=== PATIENT | male | born 1985 | race African-American/Black ===

== ENCOUNTER 2017-04-16 09:51 | Emergency (ER) | payer MEDICAID ==
[~2017-04-16] VITALS: Ht 160 cm; Wt 61.2 kg
[2017-04-16 10:30] VITALS: BP 114/89
== END 2017-04-16 10:59 | disposition home or self-care (01) ==
LOC: ER 09:51
DX: G57.92 Unspecified mononeuropathy of left lower limb (principal); J02.9 Acute pharyngitis, unspecified; Z87.442 Personal history of urinary calculi; F12.10 Cannabis abuse, uncomplicated; Z87.891 Personal history of nicotine dependence; Z88.1 Allergy status to other antibiotic agents; Z88.8 Allergy status to other drugs, medicaments and biological substances

== ENCOUNTER 2017-05-17 12:52 | Inpatient (IN) | payer MEDICAID ==
[~2017-05-17] VITALS: Ht 154.9 cm; Wt 56.1 kg
[2017-05-17] MEDS ORDERED: PIPERACILLIN-TAZOB 3.375GM 50 ML IV ONE (20:15)
[2017-05-17 22:19] LABS: Basophils # (auto) 0 uL; Basophils % (auto) 0.9 % (0.0-2.0); Eosinophils # (auto) 0.1 uL; Eosinophils % (auto) 2.2 % (0.0-7.0); Hematocrit 46.3 % (41.0-53.0); Hemoglobin 15.6 g/dL (13.5-17.5); Lymphocytes # (auto) 1.5 uL; Lymphocytes % (auto) 28.3 % (10.0-50.0); Mean Corpuscular Hemoglobin 32.8 pg (28.0-32.0); Mean Corpuscular Hgb Conc. 33.8 g/dL (32.0-36.0); Monocytes # (auto) 0.4 uL; Monocytes % (auto) 7.4 % (0.0-12.0); Neutrophils # (auto) 3.2 uL; Neutrophils % (auto) 61.2 % (37.0-80.0); Nucleated Red Blood Cells % 0.1 %; Platelet Count (auto) 200 10^3/uL (140-450); Red Blood Cells 4.77 10^6/uL (4.5-5.90); Red Cell Distribution Width 13.9 % (11.8-14.3); White Blood Cell 5.2 10^3/uL (4.4-10.8)
[2017-05-17 22:56] LABS: Albumin 4.3 g/dL (3.4-5.0); BUN/Creatinine Ratio 19.5; Bilirubin, Total 0.7 mg/dL (0.2-1.0); Calcium 8.7 mg/dL (8.5-10.1); Potassium 3.4 mmol/L (3.5-5.1); Total Protein 8.4 g/dL (6.4-8.2)
[2017-05-18] MEDS ORDERED: POTASSIUM CHL 20 Meq TABLET PO ONE (02:00)
[2017-05-18] MEDS ORDERED: ACETAMINOPHEN 500 MG TAB PO PRN (02:00)
[2017-05-18] MEDS ORDERED: VANCOMYCIN PER PHARMACY 0 MG IV SCH (02:00)
[2017-05-18] MEDS ORDERED: ONDANSETRON HCL 4 MG/2 ML VIAL IV PRN (02:00)
[2017-05-18] MEDS ORDERED: VANCOMYCIN 1GM/250ML 250 ML IV ONE (02:30)
[2017-05-18] MEDS: PIPERACILLIN-TAZOB 3.375GM 50 ML IV SCH ×3 (05:48→18:07)
[2017-05-18 13:00] VITALS: BP 128/75
[2017-05-18] MEDS ORDERED: CLOB0.05 (14:59)
[2017-05-18] MEDS ORDERED: ECON1CRE (14:59)
[2017-05-18] MEDS ORDERED: LIDO1PAD55 (14:59)
[2017-05-18 15:24] VITALS: BP 101/65
[2017-05-18] MEDS: HYDROcodone-ACET 5/325MG TAB PO PRN (16:15)
[2017-05-18 17:00] VITALS: BP 112/76
[2017-05-18 22:00] VITALS: BP 101/59
[2017-05-19] MEDS: PIPERACILLIN-TAZOB 3.375GM 50 ML IV SCH ×4 (00:40→19:57)
[2017-05-19 05:00] VITALS: BP 101/68
[2017-05-19 08:56] LABS: Basophils # (auto) 0 uL; Basophils % (auto) 0.5 % (0.0-2.0); Eosinophils # (auto) 0.1 uL; Eosinophils % (auto) 1.6 % (0.0-7.0); Hemoglobin 15.4 g/dL (13.5-17.5); Lymphocytes # (auto) 1.1 uL; Lymphocytes % (auto) 27.5 % (10.0-50.0); Mean Corpuscular Hemoglobin 32.6 pg (28.0-32.0); Mean Corpuscular Hgb Conc. 33.6 g/dL (32.0-36.0); Mean Corpuscular Volume 97.1 fL (80.0-100.0); Monocytes # (auto) 0.2 uL; Monocytes % (auto) 6.2 % (0.0-12.0); Neutrophils # (auto) 2.6 uL; Neutrophils % (auto) 64.2 % (37.0-80.0); Platelet Count (auto) 178 10^3/uL (140-450); Red Blood Cells 4.74 10^6/uL (4.5-5.90); Red Cell Distribution Width 13.9 % (11.8-14.3)
[2017-05-19 09:00] VITALS: BP 97/66
[2017-05-19 09:15] LABS: Albumin 4.1 g/dL (3.4-5.0); BUN/Creatinine Ratio 11.1; Bilirubin, Total 1.1 mg/dL (0.2-1.0); Calcium 8.8 mg/dL (8.5-10.1); Potassium 4.3 mmol/L (3.5-5.1)
[2017-05-19 13:00] VITALS: BP 108/58
[2017-05-19 17:00] VITALS: BP 111/65
[2017-05-19 21:30] VITALS: BP 134/62
[2017-05-20] MEDS: PIPERACILLIN-TAZOB 3.375GM 50 ML IV SCH ×4 (01:19→17:55)
[2017-05-20 05:00] VITALS: BP 115/74
[2017-05-20 05:42] LABS: Urine Bacteria NONE SEEN /hpf (None Seen); Urine Blood Negative /uL (Negative); Urine Specific Gravity 1.024 (1.001-1.035); Urine WBC 1 /hpf (0 - 3)
[2017-05-20 08:00] VITALS: BP 113/65
[2017-05-20] MEDS ORDERED: DEXAMETHASONE SOD PHOS 10MG/1ML VIAL INJ IV ONE (08:56)
[2017-05-20] MEDS ORDERED: fentaNYL CITRATE 100 MCG/2 ML VL ONE (08:57)
[2017-05-20] MEDS ORDERED: MIDAZOLAM HCL 1MG/1ML-2 ML VIAL ONE (08:57)
[2017-05-20 09:00] VITALS: BP 113/65
[2017-05-20] MEDS ORDERED: KETOROLAC TROMETH 30 MG/ML 1ML VIAL IV ONE (09:00)
[2017-05-20] MEDS ORDERED: ONDANSETRON HCL 4 MG/2 ML VIAL IV ONE (09:00)
[2017-05-20] MEDS ORDERED: MORPHINE SULFATE 10 MG/ML INJ 1ML SDV IV PRN (09:00)
[2017-05-20] MEDS ORDERED: HYDROmorphone HCL 2 MG/ML VL IV PRN (09:00)
[2017-05-20] MEDS ORDERED: LABETALOL HCL 5 MG/ML 4ML SYRINGE IV PRN (09:00)
[2017-05-20] MEDS ORDERED: MIDAZOLAM HCL 1MG/1ML-2 ML VIAL IV PRN (09:00)
[2017-05-20] MEDS ORDERED: ePHEDrine SULFATE 50 MG/ML AMP IV PRN (09:00)
[2017-05-20] MEDS ORDERED: NEOMYCIN-BACITRACIN-POLYM 15GM TOP OINT TOP ONE (09:15)
[2017-05-20] MEDS ORDERED: BUPIVACAINE 0.5% MPF INJ 30ML SDV IJ ONE (09:15)
[2017-05-20] MEDS ORDERED: BUPIVACAINE 0.75% INJ 10ML MPV SDV IJ ONE (09:16)
[2017-05-20] MEDS ORDERED: PROPOFOL 10 MG/ML 20 ML IV ONE (09:26)
[2017-05-20] MEDS ORDERED: KETOROLAC TROMETH 30 MG/ML 1ML VIAL ONE (09:26)
[2017-05-20 13:00] VITALS: BP 113/70
[2017-05-20 17:00] VITALS: BP 118/68
[2017-05-20] MEDS: ASCORBIC ACID 500 MG TAB PO SCH (21:55)
[2017-05-20 22:00] VITALS: BP 115/65
[2017-05-21] MEDS: PIPERACILLIN-TAZOB 3.375GM 50 ML IV SCH ×2 (00:24→05:36)
[2017-05-21 05:00] VITALS: BP 135/80
[2017-05-21] MEDS: HYDROcodone-ACET 5/325MG TAB PO PRN (05:50)
[2017-05-21 06:53] LABS: Basophils # (auto) 0 uL; Basophils % (auto) 0.5 % (0.0-2.0); Eosinophils # (auto) 0 uL; Eosinophils % (auto) 0.3 % (0.0-7.0); Hematocrit 43.4 % (41.0-53.0); Hemoglobin 14.7 g/dL (13.5-17.5); Lymphocytes # (auto) 1.2 uL; Mean Corpuscular Hemoglobin 33.2 pg (28.0-32.0); Mean Corpuscular Volume 97.6 fL (80.0-100.0); Monocytes # (auto) 0.5 uL; Monocytes % (auto) 6.8 % (0.0-12.0); Neutrophils # (auto) 5.6 uL; Neutrophils % (auto) 76.4 % (37.0-80.0); Nucleated Red Blood Cells % 0.1 %; Platelet Count (auto) 179 10^3/uL (140-450); Red Blood Cells 4.45 10^6/uL (4.5-5.90); White Blood Cell 7.3 10^3/uL (4.4-10.8)
[2017-05-21 07:11] LABS: BUN/Creatinine Ratio 18.1; Calcium 9.3 mg/dL (8.5-10.1); Potassium 3.7 mmol/L (3.5-5.1)
[2017-05-21 09:00] VITALS: BP 111/73
[2017-05-21] MEDS: ASCORBIC ACID 500 MG TAB PO SCH ×2 (09:19→22:41)
[2017-05-21] MEDS ORDERED: LEVOFLOXACIN 500 MG TAB PO ONE (11:30)
[2017-05-21 13:00] VITALS: BP 119/81
[2017-05-21 16:50] VITALS: BP 122/72
[2017-05-21 22:26] VITALS: BP 126/66
[2017-05-22 05:33] VITALS: BP 92/56
[2017-05-22 09:00] VITALS: BP 118/75
[2017-05-22] MEDS ORDERED: LEVOFLOXACIN 500 MG TAB PO SCH (10:00)
[2017-05-22] MEDS: ASCORBIC ACID 500 MG TAB PO SCH (10:00)
[2017-05-22 13:00] VITALS: BP 145/66
[2017-05-22 13:13] VITALS: BP 118/75
== END 2017-05-22 14:30 | disposition home health service (06) | DRG 383 ==
LOC: ER 12:52 → OVERFLOW 12:53 → TELE-WESTW 05-18 09:13 → WEST WING 05-19 20:01
PROVIDERS: ADMIT Nurse Practitioner Family; ATTEND Internal Medicine
PROC: 0JBR0ZZ Excision of Left Foot Subcutaneous Tissue and Fascia, Open Approach (ICD-10-PCS; principal; 2017-05-20 09:05)
DX: L03.116 Cellulitis of left lower limb (principal); E10.621 Type 1 diabetes mellitus with foot ulcer; L97.529 Non-pressure chronic ulcer of other part of left foot with unspecified severity; I10 Essential (primary) hypertension; E87.6 Hypokalemia; Z80.1 Family history of malignant neoplasm of trachea, bronchus and lung; Z82.49 Family history of ischemic heart disease and other diseases of the circulatory system; Z85.118 Personal history of other malignant neoplasm of bronchus and lung; Z87.442 Personal history of urinary calculi; Z83.3 Family history of diabetes mellitus; Z87.891 Personal history of nicotine dependence; Z89.421 Acquired absence of other right toe(s); Q05.9 Spina bifida, unspecified; Z88.1 Allergy status to other antibiotic agents; Z88.8 Allergy status to other drugs, medicaments and biological substances; E10.65 Type 1 diabetes mellitus with hyperglycemia
CPT/HCPCS: 36415; 73700; 80048; 80053; 81001; 85025; 87070; 87075; 87076; 87077; 87081; 87186; 87205; 87493; 93926; 96365; 96366; J1100; J1885; J2250; J2543; J2704; J3490

== ENCOUNTER 2018-06-25 16:25 | Emergency (ER) | payer MEDICAID ==
[~2018-06-25] VITALS: Ht 160 cm; Wt 62.1 kg
[~2018-06-25 16:25] MED LIST: CLOB0.05; ECON1CRE; LIDO1PAD55
[2018-06-25 16:45] VITALS: BP 127/84
== END 2018-06-26 01:10 | disposition left against medical advice (07) ==
LOC: ER 16:29
DX: M79.672 Pain in left foot (principal); M79.671 Pain in right foot; Z53.21 Procedure and treatment not carried out due to patient leaving prior to being seen by health care provider

== ENCOUNTER 2018-06-27 13:51 | Emergency (ER) | payer MEDICAID ==
[~2018-06-27] VITALS: Ht 157.5 cm; Wt 68.9 kg
[2018-06-27 14:18] VITALS: BP 113/72
== END 2018-06-27 16:30 | disposition left against medical advice (07) ==
LOC: ER 13:55
DX: M25.471 Effusion, right ankle (principal); Z53.21 Procedure and treatment not carried out due to patient leaving prior to being seen by health care provider

== ENCOUNTER 2021-04-25 16:56 | Emergency (ER) | payer MEDICAID ==
[~2021-04-25] VITALS: Ht 160 cm; Wt 62.1 kg
[~2021-04-25 16:56] MED LIST changes: -ECON1CRE; +ECON1CRE6
[2021-04-25 19:29] VITALS: BP 152/90
[2021-04-25 20:37] LABS: Basophils # (auto) 0 10 ^3/uL (0-0.2); Basophils % (auto) 0.6 % (0.0-2.0); Eosinophils # (auto) 0.1 10 ^3/uL (0-0.8); Eosinophils % (auto) 1.9 % (0.0-7.0); Hematocrit 43.9 % (41.0-53.0); Hemoglobin 14.8 g/dL (13.5-17.5); Lymphocytes # (auto) 1.2 10 ^3/uL (0.4-5.4); Lymphocytes % (auto) 18.9 % (10.0-50.0); Mean Corpuscular Hemoglobin 31.7 pg (28.0-32.0); Mean Corpuscular Hgb Conc. 33.8 g/dL (32.0-36.0); Monocytes # (auto) 0.4 10 ^3/uL (0-1.3); Monocytes % (auto) 5.5 % (0.0-12.0); Neutrophils # (auto) 4.7 10 ^3/uL (1.6-8.6); Neutrophils % (auto) 73.1 % (37.0-80.0); Red Blood Cells 4.67 10^6/uL (4.5-5.90); Red Cell Distribution Width 14.2 % (11.8-14.3); White Blood Cell 6.4 10^3/uL (4.4-10.8)
== END 2021-04-25 21:15 | disposition home or self-care (01) ==
LOC: ER 16:56
DX: L03.811 Cellulitis of head [any part, except face] (principal); I10 Essential (primary) hypertension; Z98.2 Presence of cerebrospinal fluid drainage device; Z88.1 Allergy status to other antibiotic agents
CPT/HCPCS: 36415; 70450; 85025

== ENCOUNTER 2021-05-15 10:59 | Emergency (ER) | payer MEDICAID ==
[~2021-05-15] VITALS: Ht 160 cm; Wt 63.5 kg
[2021-05-15 11:16] VITALS: BP 134/98
== END 2021-05-15 14:33 | disposition left against medical advice (07) ==
LOC: ER 10:59
DX: R07.89 Other chest pain (principal); R06.02 Shortness of breath; Z53.21 Procedure and treatment not carried out due to patient leaving prior to being seen by health care provider
CPT/HCPCS: 93005

== ENCOUNTER 2022-11-25 12:13 | Emergency (ER) | payer MEDICAID ==
[~2022-11-25] VITALS: Ht 160 cm; Wt 60.0 kg
[2022-11-25 12:59] VITALS: BP 123/74; PULSE 78; RESP 18; O2SAT 97
[2022-11-25] MEDS ORDERED: ACETAMINOPHEN 325 MG TAB PO ONE (13:45)
[2022-11-25] MEDS ORDERED: PROCHLORPERAZINE EDISYLATE 5 MG/ML 2ML VIAL IM ONE (13:45)
[2022-11-25 14:08] LABS: Basophils # (auto) 0 10 ^3/uL (0-0.2); Basophils % (auto) 0.6 % (0.0-2.0); Eosinophils # (auto) 0.1 10 ^3/uL (0-0.8); Eosinophils % (auto) 1.5 % (0.0-7.0); Hematocrit 45.4 % (41.0-53.0); Hemoglobin 15.1 g/dL (13.5-17.5); Lymphocytes # (auto) 1.2 10 ^3/uL (0.4-5.4); Lymphocytes % (auto) 24.4 % (10.0-50.0); Mean Corpuscular Hemoglobin 32.6 pg (28.0-32.0); Mean Corpuscular Hgb Conc. 33.3 g/dL (32.0-36.0); Mean Corpuscular Volume 97.8 fL (80.0-100.0); Monocytes # (auto) 0.4 10 ^3/uL (0-1.3); Monocytes % (auto) 8.1 % (0.0-12.0); Neutrophils # (auto) 3.3 10 ^3/uL (1.6-8.6); Neutrophils % (auto) 65.4 % (37.0-80.0); Nucleated Red Blood Cells % 0.1 %; Red Blood Cells 4.65 10^6/uL (4.5-5.90); Red Cell Distribution Width 13.7 % (11.8-14.3); White Blood Cell 5.1 10^3/uL (4.4-10.8)
[2022-11-25 14:22] LABS: Albumin 4.1 g/dL (3.4-5.0); Calcium 9.1 mg/dL (8.5-10.1); Potassium 3.8 mmol/L (3.5-5.1)
[2022-11-25 14:24] LABS: INR 1.09 (0.9-1.15)
[2022-11-25 14:26] LABS: BUN/Creatinine Ratio 10.9 (10.0-20.0); Bilirubin, Total 0.4 mg/dL (0.2-1.0); Total Protein 7.4 g/dL (6.4-8.2)
== END 2022-11-25 17:20 | disposition left against medical advice (07) ==
LOC: ER 12:13
DX: R51.9 Headache, unspecified (principal); R10.2 Pelvic and perineal pain; Z88.1 Allergy status to other antibiotic agents; Z88.8 Allergy status to other drugs, medicaments and biological substances; Z79.899 Other long term (current) drug therapy
CPT/HCPCS: 36415; 70450; 80053; 85025; 85610; 85730; 96372; 99285; J0780

== ENCOUNTER 2023-01-28 10:16 | Emergency (ER) | payer MEDICAID ==
[~2023-01-28] VITALS: Ht 160 cm; Wt 64.9 kg
[2023-01-28 11:06] LABS: Basophils # (auto) 0 10 ^3/uL (0-0.2); Basophils % (auto) 0.5 % (0.0-2.0); Eosinophils # (auto) 0.1 10 ^3/uL (0-0.8); Eosinophils % (auto) 1.7 % (0.0-7.0); Hemoglobin 15.7 g/dL (13.5-17.5); Lymphocytes # (auto) 1.3 10 ^3/uL (0.4-5.4); Lymphocytes % (auto) 25.9 % (10.0-50.0); Mean Corpuscular Hemoglobin 32.7 pg (28.0-32.0); Mean Corpuscular Hgb Conc. 33.5 g/dL (32.0-36.0); Mean Corpuscular Volume 97.6 fL (80.0-100.0); Monocytes # (auto) 0.3 10 ^3/uL (0-1.3); Monocytes % (auto) 6.6 % (0.0-12.0); Neutrophils # (auto) 3.3 10 ^3/uL (1.6-8.6); Neutrophils % (auto) 65.3 % (37.0-80.0); Nucleated Red Blood Cells % 0.1 %; Red Blood Cells 4.81 10^6/uL (4.5-5.90); Red Cell Distribution Width 13.6 % (11.8-14.3)
[2023-01-28 11:22] LABS: Urine Bacteria NONE SEEN /hpf (None Seen); Urine Blood Negative /uL (Negative); Urine Clarity Clear (Clear); Urine Color Yellow (Yellow); Urine Mucus FEW (None Seen); Urine Protein, UAD TRACE (Negative); Urine Specific Gravity 1.028 (1.001-1.035); Urine Urobilinogen Normal (Negative); Urine WBC 3 /hpf (0 - 3)
[2023-01-28 11:38] LABS: Lactic Acid w/Reflex 2.1 mmol/L (0.4-2.0)
[2023-01-28 11:40] LABS: Alanine Aminotransferase 20 U/L (7-40); Albumin 4.9 g/dL (3.2-4.8); Alkaline Phosphatase 53 U/L (46-116); Anion Gap 8 (5-15); Aspartate Aminotransferase 18 U/L (13-40); Bilirubin, Total 0.6 mg/dL (0.2-1.0); Blood Urea Nitrogen 10 mg/dL (9-23); Calcium 9.9 mg/dL (8.5-10.1); Carbon Dioxide 30 mmol/L (20-30); Chloride 103 mmol/L (98-107); Glucose 77 mg/dL (74-106); Potassium 3.7 mmol/L (3.5-5.1); Sodium 141 mmol/L (136-145); Total Protein 8.1 g/dL (5.7-8.2)
[2023-01-28] MEDS ORDERED: CEPH500C PO (13:54)
[2023-01-28 14:06] VITALS: BP 122/87; PULSE 64; RESP 17; TEMP 97.6; O2SAT 100
== END 2023-01-28 14:09 | disposition home or self-care (01) ==
LOC: ER 10:16
DX: K80.20 Calculus of gallbladder without cholecystitis without obstruction (principal); M54.50 Low back pain, unspecified; M43.06 Spondylolysis, lumbar region; Z87.891 Personal history of nicotine dependence; Z79.899 Other long term (current) drug therapy; Z88.1 Allergy status to other antibiotic agents; Z88.5 Allergy status to narcotic agent; Z88.8 Allergy status to other drugs, medicaments and biological substances
CPT/HCPCS: 36415; 74176; 80053; 81001; 83605; 85025

== ENCOUNTER 2023-05-29 17:15 | Emergency (ER) | payer MEDICAID ==
[~2023-05-29] VITALS: Ht 167.6 cm; Wt 71.1 kg
[~2023-05-29 17:15] MED LIST changes: +CEPH500C PO
[2023-05-29 17:27] VITALS: BP 135/92; PULSE 115; RESP 18; TEMP 98.6; O2SAT 95
[2023-05-29 19:33] LABS: Basophils # (auto) 0.1 10 ^3/uL (0-0.2); Basophils % (auto) 0.9 % (0.0-2.0); Eosinophils # (auto) 0.1 10 ^3/uL (0-0.8); Eosinophils % (auto) 1.9 % (0.0-7.0); Hematocrit 46.9 % (41.0-53.0); Hemoglobin 15.6 g/dL (13.5-17.5); Lymphocytes # (auto) 1.6 10 ^3/uL (0.4-5.4); Lymphocytes % (auto) 28.5 % (10.0-50.0); Mean Corpuscular Hemoglobin 32.1 pg (28.0-32.0); Mean Corpuscular Hgb Conc. 33.3 g/dL (32.0-36.0); Mean Corpuscular Volume 96.2 fL (80.0-100.0); Monocytes # (auto) 0.4 10 ^3/uL (0-1.3); Neutrophils # (auto) 3.4 10 ^3/uL (1.6-8.6); Neutrophils % (auto) 60.7 % (37.0-80.0); Nucleated Red Blood Cells % 0.1 %; Red Blood Cells 4.88 10^6/uL (4.5-5.90); Red Cell Distribution Width 14.4 % (11.8-14.3); White Blood Cell 5.6 10^3/uL (4.4-10.8)
[2023-05-29 19:44] LABS: Albumin 4.6 g/dL (3.2-4.8); Alkaline Phosphatase 45 U/L (46-116); Anion Gap 7 (5-15); Aspartate Aminotransferase 13 U/L (13-40); BUN/Creatinine Ratio 7.9 (10.0-20.0); Bilirubin, Total 0.6 mg/dL (0.2-1.0); Blood Urea Nitrogen 6 mg/dL (9-23); Calcium 9.3 mg/dL (8.5-10.1); Carbon Dioxide 23 mmol/L (20-30); Chloride 107 mmol/L (98-107); Glucose 79 mg/dL (74-106); Potassium 3.5 mmol/L (3.5-5.1); Sodium 137 mmol/L (136-145); Total Protein 7.4 g/dL (5.7-8.2)
[2023-05-29 19:45] LABS: Alanine Aminotransferase < 9 U/L (7-40)
[2023-05-29] MEDS ORDERED: BACDST PO (20:28)
[2023-05-29] MEDS ORDERED: MUPI2OIN2 EX (20:28)
[2023-05-29] MEDS ORDERED: CLIN300C70 PO ×2 (20:28)
[2023-05-29] MEDS ORDERED: NEOMYCIN-BACITRACIN-POLYM UNITDOSE PKG TOP OINT TOP ONE (20:30)
[2023-05-29] MEDS ORDERED: AMPICILLIN & SULBACTAM SODIUM 3 GM in SODIUM CHL 0.9% 100 ML IV SCH (20:30)
[2023-05-29] MEDS ORDERED: DOXY150C4 PO (20:44)
== END 2023-05-29 22:14 | disposition home or self-care (01) ==
LOC: ER 17:15
DX: L97.519 Non-pressure chronic ulcer of other part of right foot with unspecified severity (principal); Z87.891 Personal history of nicotine dependence; Z79.2 Long term (current) use of antibiotics; Z79.899 Other long term (current) drug therapy; Z88.1 Allergy status to other antibiotic agents; Z88.5 Allergy status to narcotic agent; Z88.8 Allergy status to other drugs, medicaments and biological substances
CPT/HCPCS: 36415; 73630; 80053; 85025; 96365

== ENCOUNTER 2023-06-14 16:01 | Inpatient (IN) | payer MEDICAID ==
[~2023-06-14] VITALS: Ht 157.5 cm; Wt 65.0 kg
[~2023-06-14 16:01] MED LIST changes: +BACDST PO; +DOXY150C4 PO; +MUPI2OIN2 EX
[2023-06-14 17:44] LABS: Basophils # (auto) 0.1 10 ^3/uL (0-0.2); Basophils % (auto) 2.6 % (0.0-2.0); Eosinophils # (auto) 0.1 10 ^3/uL (0-0.8); Eosinophils % (auto) 1.5 % (0.0-7.0); Hematocrit 45.7 % (41.0-53.0); Hemoglobin 15.2 g/dL (13.5-17.5); Lymphocytes # (auto) 1.2 10 ^3/uL (0.4-5.4); Lymphocytes % (auto) 21.9 % (10.0-50.0); Mean Corpuscular Hemoglobin 31.9 pg (28.0-32.0); Mean Corpuscular Hgb Conc. 33.3 g/dL (32.0-36.0); Mean Corpuscular Volume 95.9 fL (80.0-100.0); Monocytes # (auto) 0.3 10 ^3/uL (0-1.3); Monocytes % (auto) 6.5 % (0.0-12.0); Neutrophils # (auto) 3.6 10 ^3/uL (1.6-8.6); Neutrophils % (auto) 67.5 % (37.0-80.0); Nucleated Red Blood Cells % 0.1 %; Red Blood Cells 4.77 10^6/uL (4.5-5.90); Red Cell Distribution Width 14.7 % (11.8-14.3); White Blood Cell 5.4 10^3/uL (4.4-10.8)
[2023-06-14 18:00] LABS: Alanine Aminotransferase 10 U/L (7-40); Albumin 4.7 g/dL (3.2-4.8); Alkaline Phosphatase 46 U/L (46-116); Anion Gap 8 (5-15); Aspartate Aminotransferase 13 U/L (13-40); BUN/Creatinine Ratio 8.4 (10.0-20.0); Blood Urea Nitrogen 8 mg/dL (9-23); Calcium 9.8 mg/dL (8.5-10.1); Carbon Dioxide 25 mmol/L (20-30); Chloride 106 mmol/L (98-107); Glucose 121 mg/dL (74-106); Potassium 3.5 mmol/L (3.5-5.1); Sodium 139 mmol/L (136-145)
[2023-06-14 18:01] LABS: Bilirubin, Total 0.5 mg/dL (0.2-1.0); Total Protein 7.3 g/dL (5.7-8.2)
[2023-06-14] MEDS: PIPERACILLIN-TAZOB 3.375GM 100 ML IV ONE (18:18)
[2023-06-14] MEDS ORDERED: DOCUSATE SOD 100 MG CAP PO PRN (18:45)
[2023-06-14] MEDS ORDERED: ACETAMINOPHEN 325 MG TAB PO PRN (18:45)
[2023-06-14] MEDS ORDERED: ONDANSETRON HCL 4 MG/2 ML VIAL IV PRN (18:45)
[2023-06-14] MEDS ORDERED: ATOR10TA52 PO (18:45)
[2023-06-14] MEDS: ATORVASTATIN 20 MG TAB PO SCH (23:52)
[2023-06-15] MEDS: ceFAZolin 1GM/50ML 50 ML IV SCH (00:01)
[2023-06-15] MEDS: HYDROcodone-ACET 5/325MG TAB PO PRN (04:58)
[2023-06-15 07:20] LABS: Basophils # (auto) 0 10 ^3/uL (0-0.2); Basophils % (auto) 0.8 % (0.0-2.0); Eosinophils # (auto) 0.1 10 ^3/uL (0-0.8); Eosinophils % (auto) 2.4 % (0.0-7.0); Hematocrit 47.6 % (41.0-53.0); Hemoglobin 15.9 g/dL (13.5-17.5); Lymphocytes # (auto) 1.3 10 ^3/uL (0.4-5.4); Lymphocytes % (auto) 23.7 % (10.0-50.0); Mean Corpuscular Hemoglobin 32.2 pg (28.0-32.0); Mean Corpuscular Hgb Conc. 33.4 g/dL (32.0-36.0); Mean Corpuscular Volume 96.4 fL (80.0-100.0); Monocytes # (auto) 0.5 10 ^3/uL (0-1.3); Neutrophils # (auto) 3.4 10 ^3/uL (1.6-8.6); Neutrophils % (auto) 63.1 % (37.0-80.0); Nucleated Red Blood Cells % 0.1 %; Red Blood Cells 4.94 10^6/uL (4.5-5.90); Red Cell Distribution Width 14.5 % (11.8-14.3); White Blood Cell 5.4 10^3/uL (4.4-10.8)
[2023-06-15 07:27] LABS: Albumin 4.9 g/dL (3.2-4.8); Alkaline Phosphatase 47 U/L (46-116); Anion Gap 7 (5-15); Aspartate Aminotransferase 14 U/L (13-40); BUN/Creatinine Ratio 9.1 (10.0-20.0); Bilirubin, Total 0.6 mg/dL (0.2-1.0); Blood Urea Nitrogen 9 mg/dL (9-23); Calcium 9.9 mg/dL (8.5-10.1); Carbon Dioxide 27 mmol/L (20-30); Chloride 105 mmol/L (98-107); Glucose 95 mg/dL (74-106); Potassium 4.3 mmol/L (3.5-5.1); Sodium 139 mmol/L (136-145)
[2023-06-15 07:28] LABS: Alanine Aminotransferase 9 U/L (7-40); Total Protein 7.7 g/dL (5.7-8.2)
[2023-06-15 07:35] VITALS: PULSE 69; RESP 18; O2SAT 99
[2023-06-15 10:38] LABS: Erythrocyte Sedimentation Rate 2 mm/hr (0-20)
[2023-06-15] MEDS: DOXYCYCLINE 100 MG TAB/CAP PO SCH (10:48)
[2023-06-15 11:58] VITALS: BP 113/81; PULSE 67; RESP 15; TEMP 97.4; O2SAT 96
[2023-06-16] MEDS ORDERED: cefTRIAXone 1GM/50ML D5W 50 ML IV SCH (09:00)
== END 2023-06-15 14:13 | disposition left against medical advice (07) | DRG 383 ==
LOC: ER 16:01 → OVERFLOW 18:44
PROVIDERS: ADMIT Nurse Practitioner Family; ATTEND Nurse Practitioner Acute Care
DX: L03.115 Cellulitis of right lower limb (principal); L97.519 Non-pressure chronic ulcer of other part of right foot with unspecified severity; E78.5 Hyperlipidemia, unspecified; M54.10 Radiculopathy, site unspecified; Q05.9 Spina bifida, unspecified; Z59.00 Homelessness unspecified; Z88.5 Allergy status to narcotic agent; Z88.1 Allergy status to other antibiotic agents; Z88.8 Allergy status to other drugs, medicaments and biological substances; Z87.442 Personal history of urinary calculi; Z87.891 Personal history of nicotine dependence
CPT/HCPCS: 36415; 73700; 80053; 83605; 85025; 85652; 87040; 96365; G0378; J2543